=== PATIENT | male | born 1970 | race Caucasian/White ===

== ENCOUNTER 2017-11-17 14:48 | Emergency (ER) | payer OTHER ==
[~2017-11-17] VITALS: Ht 180.3 cm; Wt 108.9 kg
[~2017-11-17 14:48] MED LIST: DIURETIC
[2017-11-17] MEDS ORDERED: LOPRESSOR50 PO (14:58)
[2017-11-17] MEDS ORDERED: ZYRTEC10 M5 PO (14:59)
[2017-11-17] MEDS ORDERED: NAPROSYN500 MG PO (16:40)
[2017-11-17 17:02] VITALS: BP 124/71
== END 2017-11-17 17:03 | disposition home or self-care (01) ==
LOC: M.ERS 14:48
DX: I87.2 Venous insufficiency (chronic) (peripheral) (principal); M77.9 Enthesopathy, unspecified; I10 Essential (primary) hypertension; E78.00 Pure hypercholesterolemia, unspecified; Z86.2 Personal history of diseases of the blood and blood-forming organs and certain disorders involving the immune mechanism; Z88.0 Allergy status to penicillin